=== PATIENT | male | born 1995 | race Caucasian/White ===

== ENCOUNTER 2019-09-18 00:26 | Emergency (ER) | payer BC ==
--- NOTE | 2019-09-18 01:03 | CR ---
HISTORY: Pain after injury. COMPARISON: None available. FINDINGS: AP, lateral and oblique views of the right ankle were obtained for a total of three views. There is no sign of fracture or dislocation. The ankle mortise is intact. The talar dome is intact. There is no sign of a joint effusion. There is mild swelling over the lateral malleolus with no evidence of an underlying fracture. The soft tissues are otherwise normal in appearance and there is no sign of any radiopaque foreign body. No degenerative changes are seen IMPRESSION: No sign of acute osseous injury. Mild lateral soft tissue swelling. Dictated by Deshawn Reddy MD @ Sep 18 2019 1:00AM Signed by Dr. Deshawn Reddy @ Sep 18 2019 1:01AM
--- NOTE | 2019-09-18 01:25 | EDM.PDOC ---
ED HPI GENERAL MEDICAL PROBLEM - General Chief Complaint: Lower Extremity Injury/Pain Stated Complaint: POSSIBLE RT ANKLE INJURY Time Seen by Provider: 09/18/19 01:21 Source of Information: Reports: Patient History Limitations: Reports: No Limitations - History of Present Illness INITIAL COMMENTS - FREE TEXT/NARRATIVE: HISTORY AND PHYSICAL: History of present illness: This is a 24-year-old gentleman who presents the ER today secondary to pain swelling and ecchymosis to his right ankle. Patient reports that while he was running he sustained an inversion injury of his right ankle. Patient reports currently he has no pain unless someone touches it. Patient reports he was ambulating after the injury. Patient denies any other symptomatology or injury. Review of systems: As per history of present illness and below otherwise all systems reviewed and negative. Past medical history: As per history of present illness and as reviewed below otherwise noncontributory. Surgical history: As per history of present illness and as reviewed below otherwise noncontributory. Social history: No reported history of drug or alcohol abuse. Family history: As per history of present illness and as reviewed below otherwise noncontributory. Physical exam: Constitutional: Patient is oriented to person, place, and time. Appears well- developed and well-nourished. No distress. HEENT: Moist mucous membranes Head: Normocephalic and atraumatic Eyes: Right eye exhibits no discharge. Left eye exhibits no discharge. No scleral icterus Neck: Normal range of motion. No tracheal deviation present. Cardiovascular: Normal rate and regular rhythm. Pulmonary: Effort normal, no respiratory distress. Abdominal: No distention Musculoskeletal: Normal range of motion Neurologic: Alert and oriented to person, place and time. Skin: [place], warm and dry. Psychiatric: Normal mood and affect. Behavior is normal. Judgment and thought content normal. Patient's ER physical exam is significant for ecchymosis and soft tissue swelling and tenderness to palpation to his right lateral malleolus and in the region of the deltoid ligament. Nursing note and vital signs have been reviewed Diagnostics: X-ray of right ankle reveals no acute fracture dislocation. Patient does have soft tissue swelling to his lateral malleolus on the x-ray. Interpreted by Dr. [employer]: Air splint\ Ibuprofen Impression: Right ankle sprain Plan: Air splint and ibuprofen to assist with stabilization. Rest ice and elevation. Follow-up with primary care physician for reevaluation within 1 week. Ibuprofen for pain. Reassessment at the time of disposition demonstrates that the patient is in no acute distress. The patient has remained stable throughout the entire ED visit and is without objective evidence for acute process requiring urgent intervention or hospitalization. The patient is stable for discharge, counseling is provided as documented above, discussed symptomatic treatment and specific conditions for return. I have spoken with the patient/caregive and discussed todays findings, in addition to providing specific details for the plan of care. Questions are answered and there is agreement with the plan. Definitive disposition and diagnosis as appropriate pending reevaluation and review of above. Right Ankle Pain Score (Numeric/FACES): 3 - Related Data Allergies Allergy/AdvReac Type Severity Reaction Status Date / Time No Known Allergies Allergy Verified 09/18/19 00:35 Home Meds: Home Meds . [No Known Home Meds] 09/18/19 [History] Past Medical History - Past Health History Medical/Surgical History: Denies Medical/Surgical History HEENT History: Reports: None Cardiovascular History: Reports: None Respiratory History: Reports: None Gastrointestinal History: Reports: None Genitourinary History: Reports: None Musculoskeletal History: Reports: None Neurological History: Reports: None Psychiatric History: Reports: None Endocrine/Metabolic History: Reports: None Hematologic History: Reports: None Immunologic History: Reports: None Oncologic (Cancer) History: Reports: None Dermatologic History: Reports: None - Infectious Disease History Infectious Disease History: Reports: None - Past Surgical History Head Surgeries/Procedures: Reports: None Social & Family History - Family History Family Medical History: Noncontributory - Tobacco Use Smoking Status *Q: Current Every Day Smoker Years of Tobacco use: 2 Packs/Tins Daily: 0.5 Used Tobacco, but Quit: No Second Hand Smoke Exposure: No - Caffeine Use Caffeine Use: Reports: Coffee - Recreational Drug Use Recreational Drug Use: No Review of Systems - Review of Systems Review Of Systems: Comprehensive ROS is negative, except as noted in HPI. ED EXAM, GENERAL - Physical Exam Exam: See Below Course - Vital Signs Last Recorded V/S: Last Vital Signs Temp 97.7 F 09/18/19 00:35 Pulse 62 09/18/19 00:35 Resp 14 09/18/19 00:35 BP 134/75 09/18/19 00:35 Pulse Ox 99 09/18/19 00:35 Departure - Departure Time of Disposition: 01:25 Disposition: Home, Self-Care 01 Condition: Good Clinical Impression: Right ankle sprain - Discharge Information *PRESCRIPTION DRUG MONITORING PROGRAM REVIEWED*: Not Applicable *COPY OF PRESCRIPTION DRUG MONITORING REPORT IN PATIENT KEHINDE: Not Applicable Instructions: How to Use a Stirrup Ankle Brace, [id number], Ankle Sprain, [id number] Referrals: PCP,None [Primary Care Provider] - Additional Instructions: X-ray of your right ankle today reveals no acute fracture or dislocation. You will be given a prescription for ibuprofen to assist you with the pain. You will be given a ankle splint to help with stabilization of your ankle. This can be used as needed and can be removed when you are pain-free. The following information is given to patients seen in the emergency department who are being discharged to home. This information is to outline your options for follow-up care. We provide all patients seen in our emergency department with a follow-up referral. The need for follow-up, as well as the timing and circumstances, are variable depending upon the specifics of your emergency department visit. If you don't have a primary care physician on staff, we will provide you with a referral. We always advise you to contact your personal physician following an emergency department visit to inform them of the circumstance of the visit and for follow-up with them and/or the need for any referrals to a consulting specialist. The emergency department will also refer you to a specialist when appropriate. This referral assures that you have the opportunity for follow-up care with a specialist. All of these measure are taken in an effort to provide you with optimal care, which includes your follow-up. Under all circumstances we always encourage you to contact your private physician who remains a resource for coordinating your care. When calling for follow-up care, please make the office aware that this follow-up is from your recent emergency room visit. If for any reason you are refused follow-up, please contact the [facility] at and asked to speak to the emergency department charge nurse. Sepsis Event Note (ED) - Evaluation Sepsis Screening Result: No Definite Risk - Focused Exam Vital Signs: Vital Signs Temp Pulse Resp BP Pulse Ox 09/18/19 00:35 97.7 F 62 14 134/75 99
[2019-09-18] MEDS ORDERED: Ibuprofen 600 MG Tab PO ONE (01:26)
== END 2019-09-18 01:47 | disposition home or self-care (01) ==
LOC: MW.ED 00:26
DX: S93.401A Sprain of unspecified ligament of right ankle, initial encounter (principal); F17.210 Nicotine dependence, cigarettes, uncomplicated; X50.1XXA Overexertion from prolonged static or awkward postures, initial encounter; Y93.02 Activity, running
CPT/HCPCS: 73610; 99283; A9270